=== PATIENT | female | born 1995 ===

== ENCOUNTER 2017-02-17 15:37 | Emergency (ER) | payer SELFPAY ==
[2017-02-17 15:43] VITALS: BMI 35.7
[2017-02-17 15:46] VITALS: RESP 16; TEMP 99.5; O2SAT 100
[2017-02-17 16:19] LABS: PH,URINE 6.5 (4.7-8.0); URINE BILIRUBIN NEGATIVE (NEGATIVE); URINE BLOOD NEGATIVE (NEGATIVE); URINE GLUCOSE (UA) NEGATIVE (NEGATIVE); URINE KETONE TRACE mg/dL (NEGATIVE); URINE LEUKOCYTE ESTERASE TRACE Leu/uL (NEGATIVE); URINE PROTEIN NEGATIVE mg/dL (<30 mg/dL)
--- NOTE | 2017-02-17 16:19 | ED PDOC ---
Arrival/HPI - General Chief Complaint: Abdominal Pain Time Seen by Provider: 02/17/17 15:55 Historian: Patient - History of Present Illness Narrative History of Present Illness (Text): 02/17/17 16:13 21yo female present with complaint of pelvic abdominal pain with dysuria x 2weeks. States pain is intermittent and feels like a "knot". Also notes that her LMP was in November and she took 8home test that was all negative. Denies vaginal bleeding, hematuria, nausea, vomiting, urinary frequency, fever, chills, any other complaint. Past Medical History - Provider Review Nursing Documentation Reviewed: Yes - Infectious Disease Hx of Infectious Diseases: None - Tetanus Immunization Tetanus Immunization: Up to Date - Past Medical History Past Medical History: No Previous - Psychiatric Hx Psychophysiologic Disorder: No Hx Anxiety: No Hx Bipolar Disorder: No Hx Depression: No Hx Emotional Abuse: No Hx Hallucinations: No Hx Panic Disorder: No Hx Post Traumatic Stress Disorder: No Hx Psychosis: No Hx Physical Abuse: No Hx Schizophrenia: No Hx Sexual Abuse: No Hx Substance Use: No - Past Surgical History Past Surgical History: No Previous - Anesthesia Hx Anesthesia: No Hx Anesthesia Reactions: No Hx Malignant Hyperthermia: No - Suicidal Assessment Feels Threatened In Home Enviroment: No Family/Social History - Physician Review Nursing Documentation Reviewed: Yes Family/Social History: Unknown Family HX Smoking Status: Current Some Days Smoker Hx Alcohol Use: No Hx Substance Use: No Hx Substance Use Treatment: No Allergies/Home Meds Allergies/Adverse Reactions: Allergies No Known Allergies Allergy (Verified 02/17/17 15:43) Review of Systems - Physician Review All systems were reviewed & negative as marked: Yes - Review of Systems Constitutional: Normal Eyes: Normal ENT: Normal Respiratory: Normal Cardiovascular: Normal Gastrointestinal: Abdominal Pain. absent: Constipation, Diarrhea, Nausea, Vomiting, Hematochezia, Hematemesis Genitourinary Female: Dysuria. absent: Frequency, Hematuria Musculoskeletal: Normal Skin: Normal Neurological: Normal Endocrine: Normal Hemo/Lymphatic: Normal Psychiatric: Normal Physical Exam Vital Signs Reviewed: Yes Vital Signs Temp Pulse Resp BP Pulse Ox 02/17/17 18:57 74 16 118/72 100 02/17/17 17:57 79 16 117/76 100 02/17/17 15:43 99.5 F 73 16 142/89 100 Temperature: Afebrile Blood Pressure: Normal Pulse: Regular Respiratory Rate: Normal Appearance: Positive for: Well-Appearing, Non-Toxic, Comfortable Pain Distress: None Mental Status: Positive for: Alert and Oriented X 3 - Systems Exam Head: Present: Atraumatic, Normocephalic Pupils: Present: PERRL Extroacular Muscles: Present: EOMI Conjunctiva: Present: Normal Mouth: Present: Moist Mucous Membranes Neck: Present: Normal Range of Motion Respiratory/Chest: Present: Clear to Auscultation, Good Air Exchange. No: Respiratory Distress, Accessory Muscle Use Cardiovascular: Present: Regular Rate and Rhythm, Normal S1, S2. No: Murmurs Abdomen: Present: Normal Bowel Sounds. No: Tenderness, Distention, Peritoneal Signs, Rebound, Guarding, McBurney's Point Tender, Rovsing's Sign Present Back: Present: Normal Inspection. No: CVA Tenderness Upper Extremity: Present: Normal Inspection. No: Cyanosis, Edema Lower Extremity: Present: Normal Inspection. No: Edema Neurological: Present: GCS=15, CN II-XII Intact, Speech Normal Skin: Present: Warm, Dry, Normal Color. No: Rashes Psychiatric: Present: Alert, Oriented x 3, Normal Insight, Normal Concentration Medical Decision Making ED Course and Treatment: 02/20/17 12:53 Transvaginal US was negative. UA showed trace leuko. PT was treated for UTI with abx and DC home. She was comfortable in ED. Result was DW the pt. she stated that she have a [employer]GER and was advised to f/u with the [employer]GER - Lab Interpretations Microbiology Results: Microbiology Results 02/17/17 16:04 Urine,Clean Catch Urine Culture - Final No Growth (<1,000 CFU/ML) Lab Results: Lab Results 02/17/17 16:04: Urine Color Yellow, Urine Appearance Clear, Urine pH 6.5, Ur Specific [place] 1.025, Urine Protein Negative, Urine Glucose (UA) Negative, Urine Ketones Trace H, Urine Blood Negative, Urine Nitrate Negative, Urine Bilirubin Negative, Urine Urobilinogen 1.0 H, Ur Leukocyte Esterase Trace H, Urine RBC 2 - 5, Urine WBC 2 - 5, Ur Epithelial Cells 6 - 8, Calcium Oxalate Crystal Occ, Urine Bacteria Mod - RAD Interpretation Radiology Orders: 02/17/17 16:32 TRANSVAGINAL [US] Routine Disposition/Present on Arrival - Present on Arrival Any Indicators Present on Arrival: No History of DVT/PE: No History of Uncontrolled Diabetes: No Urinary Catheter: No History of Decub. Ulcer: No History Surgical Site Infection Following: None - Disposition Have Diagnosis and Disposition been Completed?: Yes Diagnosis: UTI (urinary tract infection) Disposition: HOME/ ROUTINE Disposition Time: 18:50 Patient Plan: Discharge Condition: STABLE Discharge Instructions (ExitCare): Urinary Tract Infection in Women (ED) Additional Instructions: Follow up with your doctor Return to ED for any new or worsening symptoms Prescriptions: Nitrofurantoin Macrocrystals [Macrobid] 100 mg PO TID #6 cap Phenazopyridine [Pyridium] 200 mg PO TID #6 tab Referrals: Ancelmo Meehan MD [Primary Care Provider] - Follow up with primary
[2017-02-17 16:24] LABS: URINE APPEARANCE CLEAR (CLEAR); URINE COLOR YELLOW (YELLOW)
[2017-02-17 17:08] LABS: URINE BACTERIA MOD (NEG); URINE CALCIUM OXALATE CRYSTALS OCC /hpf
--- NOTE | 2017-02-17 18:31 | US ---
HISTORY: pelvic pain COMPARISON: None available. TECHNIQUE: Transvaginal pelvic ultrasound FINDINGS: UTERUS: Measures approximately 6.6 x 3.5 x 4.3 cm. ENDOMETRIUM: Measures 1.4 cm in diameter. CERVIX: Small nabothian cysts. RIGHT OVARY: Measures 3.7 x 1.5 x 1.8 cm. Blood flow is demonstrated. Follicles. LEFT OVARY: Measures 2.9 x 2.1 x 2.1 cm. Blood flow is demonstrated. Follicles. FREE FLUID: No significant free fluid noted. OTHER FINDINGS: None. IMPRESSION: Unremarkable pelvic ultrasound as above.
[2017-02-17 18:58] VITALS: BP 118/72; PULSE 74
== END 2017-02-17 18:58 | disposition home or self-care (01) ==
LOC: ED 15:37
DX: N39.0 Urinary tract infection, site not specified (principal)